=== PATIENT | male | born 1995 | race Caucasian/White ===

== ENCOUNTER 2019-06-25 13:46 | Emergency (ER) | payer BC ==
[~2019-06-25] VITALS: Ht 177.8 cm; Wt 77.1 kg
[2019-06-25 17:20] VITALS: BP 126/74
[2019-06-25] MEDS: IBUPROFEN 800 MG TAB PO ONE ×2 (17:20→17:22)
== END 2019-06-25 17:34 | disposition home or self-care (01) ==
LOC: ER 13:46
DX: S43.102A Unspecified dislocation of left acromioclavicular joint, initial encounter (principal); V86.56XA Driver of dirt bike or motor/cross bike injured in nontraffic accident, initial encounter; Y93.89 Activity, other specified; Y99.8 Other external cause status; Y92.89 Other specified places as the place of occurrence of the external cause
CPT/HCPCS: 73000